=== PATIENT | female | born 2000 | race African-American/Black ===

== ENCOUNTER 2024-06-18 09:15 | Emergency (ER) | payer SELFPAY ==
[~2024-06-18] VITALS: Ht 167.6 cm; Wt 55.3 kg
[2024-06-18] MEDS: ADENOSINE 3 MG/ML 2ML VIAL IV ONE (09:30)
[2024-06-18] MEDS: SODIUM CHLORIDE 0.9% 1,000 ML IV ONE (09:47)
[2024-06-18 09:55] LABS: CHLORIDE 105 mEq/L (98-107); POTASSIUM 3.4 mEq/L (3.5-5.1); SODIUM 139 mEq/L (136-145)
[2024-06-18 09:56] LABS: CARBON DIOXIDE 25 mEq/L (21-32)
[2024-06-18 09:57] LABS: CALCIUM 10.2 mg/dL (8.7-10.4)
[2024-06-18 09:58] LABS: BASOPHILS % 0.3 % (0.0-2.0); DIFFERENTIAL COMMENT 0; EOSINOPHILS % 3.3 % (0.0-5.0); HEMATOCRIT. 39.8 % (36.0-48.0); HEMOGLOBIN. 13.2 g/dL (12.0-16.0); LYMPHOCYTES % 40.3 % (20.0-50.0); MEAN CORPUSCULAR HEMOGLOBIN 30.7 pg (28.0-32.0); MEAN CORPUSCULAR HGB CONC 33.1 g/dL (31.0-37.0); MEAN CORPUSCULAR VOLUME 92.6 fL (81.0-99.0); MEAN PLATELET VOLUME 9.1 fl (7.4-10.4); MONOCYTES % 9.8 % (2.0-8.0); NEUTROPHILS % 46.3 % (40.0-76.0); PLATELET 325 x1000/uL (130-400); RED BLOOD CELL COUNT 4.29 mill/uL (4.2-5.4); RED CELL DISTRIBUTION WIDTH 14.4 % (11.6-14.6); WHITE BLOOD COUNT 5.9 x1000/uL (4.5-11.0)
[2024-06-18 10:01] LABS: CREATININE 0.8 mg/dL (0.6-1.0)
[2024-06-18 10:02] LABS: GLUCOSE 114 mg/dL (70-105); UREA NITROGEN BLOOD 9 mg/dL (9-23)
[2024-06-18 10:14] LABS: TROPONIN I HIGH SENSITIVITY < 4 ng/L (3.0-34)
[2024-06-18] MEDS ORDERED: ACETAMINOPHEN 325MG TABLET PO PRN ×2 (11:30)
[2024-06-18] MEDS ORDERED: ONDANSETRON HCL 4MG/2ML INJ IV PRN (11:30)
[2024-06-18] MEDS ORDERED: MAGNESIUM/ALUMINUM HYDROXIDE/SIMETHICONE 30ML UDC PO PRN (11:30)
[2024-06-18] MEDS ORDERED: IPRATROPIUM/ALBUTEROL 0.5-3(2.5)MG/3ML NEB HHN PRN (11:30)
[2024-06-18] MEDS ORDERED: DOCUSATE SODIUM 100MG CAPSULE PO PRN (11:30)
[2024-06-18] MEDS ORDERED: GUAIFENESIN 200MG/10ML SUGAR FREE UDC PO PRN (11:30)
[2024-06-18] MEDS ORDERED: CLONIDINE 0.1MG TABLET PO PRN (11:30)
[2024-06-18] MEDS: POTASSIUM CHLORIDE 20MEQ TABLET SR PO NR (12:06)
[2024-06-18] MEDS: METOPROLOL TARTRATE 25MG TABLET PO SCH (12:30)
[2024-06-18 13:06] LABS: CHLORIDE 110 mEq/L (98-107); POTASSIUM 3.7 mEq/L (3.5-5.1); SODIUM 141 mEq/L (136-145)
[2024-06-18 13:07] LABS: CALCIUM 8.8 mg/dL (8.7-10.4); CARBON DIOXIDE 24 mEq/L (21-32)
[2024-06-18 13:12] LABS: CREATININE 0.7 mg/dL (0.6-1.0); GLUCOSE 92 mg/dL (70-105)
[2024-06-18 13:13] LABS: UREA NITROGEN BLOOD 7 mg/dL (9-23)
[2024-06-18 13:14] LABS: ALANINE AMINOTRANSFERASE 18 IU/L (10-49); ALBUMIN 3.8 g/dL (3.2-4.8); ASPARTATE AMINOTRANSFERASE 19 IU/L (<34); PHOSPHORUS 2.4 mg/dL (2.5-4.9)
[2024-06-18 13:15] LABS: BILIRUBIN TOTAL 0.5 mg/dL (0.1-1.0); PROTEIN TOTAL 7.2 g/dL (6.0-8.3)
[2024-06-18 19:00] VITALS: BP 109/79; PULSE 74; RESP 10; TEMP 36.7; O2SAT 95
== END 2024-06-18 19:28 | disposition left against medical advice (07) ==
LOC: ER 09:15 → EDBEDREQTM 11:24 → EDBEDREQ 11:24 → ER 19:28
DX: I47.10 Supraventricular tachycardia, unspecified (principal); Z79.899 Other long term (current) drug therapy
CPT/HCPCS: 99285; 93970; 96360; 71045; 80053; 83880; 83735; 84100; 85025; 84484; 36415; 93005; 80048; J7030